=== PATIENT | female | born 1990 | race Caucasian/White ===

== ENCOUNTER 2017-11-01 09:36 | Emergency (ER) | payer OTHER, MEDICAID ==
[~2017-11-01] VITALS: Ht 157.5 cm; Wt 56.7 kg
[2017-11-01 09:50] VITALS: BP 109/77
[2017-11-01] MEDS ORDERED: AZO STANDARD95 MG PO (09:52)
[2017-11-01 09:53] LABS: URINE BILIRUBIN NEGATIVE (Negative); URINE BLOOD 1+ (Negative); URINE CLARITY CLEAR; URINE COLOR YELLOW; URINE GLUCOSE-RANDOM NEGATIVE (Negative); URINE KETONES NEGATIVE (Negative); URINE NITRITE-REFLEX NEGATIVE (Negative); URINE PROTEIN NEGATIVE (Negative); URINE UROBILINOGEN 0.2 E.U./dl (0.2-1.0)
[2017-11-01 09:54] LABS: URINE LEUKOCYTES-REFLEX 3+ (Negative)
[2017-11-01 10:05] LABS: SQUAMOUS 4-10 Moderate /LPF (0-3); WBC CLUMPS Few (None Seen)
[2017-11-01 10:06] LABS: BACTERIA-REFLEX >30 Many /HPF (None Seen); URINE RBC 0-2 Rare /HPF (0-2)
[2017-11-01 10:07] LABS: CASTS None Seen /LPF (None Seen); CRYSTALS None Seen /LPF (None Seen); MUCUS None Seen strn/LPF (None Seen)
[2017-11-01] MEDS ORDERED: PHENAZOPYRIDIN200 M2 PO (10:24)
[2017-11-01] MEDS ORDERED: BACTRIM DS TAB1 EACH PO (10:24)
== END 2017-11-01 10:44 | disposition home or self-care (01) ==
LOC: M.ERS 09:36
PROVIDERS: Emergency Medicine Emergency Medical Services
DX: N12 Tubulo-interstitial nephritis, not specified as acute or chronic (principal)